=== PATIENT | female | born 1995 | race Two or more races ===

== ENCOUNTER 2022-07-20 09:57 | Emergency (ER) | payer OTHER ==
[~2022-07-20] VITALS: Ht 157.5 cm; Wt 53.5 kg
[2022-07-20] MEDS ORDERED: PRENATA CHEWAB1 EACH (10:05)
== END 2022-07-20 13:34 | disposition home or self-care (01) ==
LOC: ER 09:57
DX: O20.8 Other hemorrhage in early pregnancy (principal); Z3A.01 Less than 8 weeks gestation of pregnancy; Z88.2 Allergy status to sulfonamides

== ENCOUNTER → 2022-08-13 | Emergency (ER) | payer OTHER ==
[~2022-08-13] VITALS: Ht 157.5 cm; Wt 54.4 kg
[~2022-08-13] MED LIST: PRENATA CHEWAB1 EACH
== END | disposition home or self-care (01) ==
LOC: ER 15:46
DX: Z53.21 Procedure and treatment not carried out due to patient leaving prior to being seen by health care provider (principal)

== ENCOUNTER 2022-08-15 09:29 | Emergency (ER) | payer OTHER ==
[~2022-08-15] VITALS: Ht 157.5 cm; Wt 54.4 kg
== END 2022-08-15 13:08 | disposition home or self-care (01) ==
LOC: ER 09:29
DX: O23.31 Infections of other parts of urinary tract in pregnancy, first trimester (principal); Z3A.08 8 weeks gestation of pregnancy; Z88.2 Allergy status to sulfonamides; N39.0 Urinary tract infection, site not specified